=== PATIENT | female | born 1940 | race African-American/Black ===

== ENCOUNTER 2017-11-07 09:35 | Emergency (ER) | payer SELFPAY ==
[~2017-11-07] VITALS: Ht 160 cm; Wt 70.0 kg
[~2017-11-07 09:35] MED LIST: PRILOSEC
[2017-11-07 09:37] VITALS: BP 134/68
== END 2017-11-07 10:46 | disposition home or self-care (01) ==
LOC: ER 09:56
DX: S46.911A Strain of unspecified muscle, fascia and tendon at shoulder and upper arm level, right arm, initial encounter (principal); K21.9 Gastro-esophageal reflux disease without esophagitis; I10 Essential (primary) hypertension; X58.XXXA Exposure to other specified factors, initial encounter; Y93.89 Activity, other specified; Y92.89 Other specified places as the place of occurrence of the external cause; Y99.8 Other external cause status
CPT/HCPCS: 99283